=== PATIENT | female | born 1970 | race Caucasian/White ===

== ENCOUNTER 2017-07-05 21:33 | Emergency (ER) | payer SELFPAY ==
[~2017-07-05] VITALS: Ht 162.6 cm; Wt 121.0 kg
[~2017-07-05 21:33] MED LIST: KEFLEX500 MG PO; NOHOMEMEDS; NORCO 5/3251 TABLET PO
[2017-07-05] MEDS ORDERED: MEDROL DOSEPAK4 MG PO (23:10)
[2017-07-05] MEDS ORDERED: ROBAXIN750 MG PO (23:10)
[2017-07-05 23:26] VITALS: BP 155/94
== END 2017-07-05 23:29 | disposition home or self-care (01) ==
LOC: EME 21:33
DX: M79.601 Pain in right arm (principal); M54.12 Radiculopathy, cervical region
CPT/HCPCS: 73060; 99281; 99283; J7512